=== PATIENT | female | born 1990 | race Caucasian/White ===

== ENCOUNTER 2016-11-25 15:05 | Emergency (ER) | payer BC ==
[2016-11-25 15:35] VITALS: BP 139/60
--- NOTE | 2016-11-25 15:47 | UC ---
Back Pain HPI - HPI Summary HPI Summary: Upper left back pain and muscle spasm causing pain in to her left arm - History of Current Complaint Chief Complaint: UCBackPain Stated Complaint: BACK PAIN Time Seen by Provider: 11/25/16 15:30 Hx Obtained From: Patient Hx Last Menstrual Period: November 12 ?: No Onset/Duration: Sudden Onset, Lasting Days - 2, Still Present Timing: Constant Severity Initially: Moderate Severity Currently: Moderate Pain Intensity: 7 Pain Scale Used: 0-10 Numeric Back Pain: Is Discrete @ - left upper back arm and shoulder Character: Aching, Spasmodic, Stiffness Aggravating: Movement, Lifting Alleviating: Rest, Position Associated Signs And Symptoms: Positive: Negative - Allergies/Home Medications Allergies/Adverse Reactions: Allergies Allergy/AdvReac Type Severity Reaction Status Date / Time Codeine Allergy Hives Verified 11/25/16 15:37 Home Medications: Home Medications Calcium 500 mg PO 11/25/16 [History] Cholecalciferol [Vitamin D] 1,000 unit PO 11/25/16 [History] Mirtazapine [Remeron] 45 mg PO 11/25/16 [History] Multiple Vitamins W/ Minerals [Multivitamin Adults] 11/25/16 [History] PMH/Surg Hx/FS Hx/Imm Hx Previously Healthy: No - osteopenia Psychological History Of: Reports: Anxiety - Surgical History Surgical History: None - Family History Family History: DDD - Social History Occupation: Employed Full-time - server security administrator Lives: With Family Alcohol Use: Weekly Substance Use Type: Marijuana Smoking Status (MU): Former Smoker Have You Smoked in the Last Year: No Review of Systems Constitutional: Negative Skin: Negative Eyes: Negative ENT: Negative Respiratory: Negative Cardiovascular: Negative Gastrointestinal: Negative Genitourinary: Negative Motor: Negative Neurovascular: Negative Musculoskeletal: Negative, Myalgia - left side of upper back and shoulder Neurological: Negative Psychological: Negative All Other Systems Reviewed And Are Negative: Yes Physical Exam Triage Information Reviewed: Yes Appearance: Well-Appearing, No Pain Distress, Well-Nourished Vital Signs: Initial Vital Signs Temp 98.6 F 11/25/16 15:27 Pulse 105 11/25/16 15:27 Resp 16 11/25/16 15:27 BP 139/60 11/25/16 15:27 Pulse Ox 100 11/25/16 15:27 Vital Signs Reviewed: Yes Eye Exam: Normal Eyes: Positive: Conjunctiva Clear ENT Exam: Normal ENT: Positive: Normal ENT inspection, Hearing grossly normal, TMs normal. Negative: Nasal congestion, Nasal drainage, Tonsillar swelling, Tonsillar exudate, Trismus, Muffled/hoarse voice Neck exam: Normal Neck: Positive: Supple, Nontender, No Lymphadenopathy Respiratory Exam: Normal Respiratory: Positive: Chest non-tender, Lungs clear, Normal breath sounds, No respiratory distress, No accessory muscle use Cardiovascular Exam: Normal Cardiovascular: Positive: RRR, No Murmur, Pulses Normal, Brisk Capillary Refill Musculoskeletal Exam: Normal Musculoskeletal: Positive: Strength Intact, ROM Intact, No Edema Neurological Exam: Normal Neurological: Positive: Alert, Muscle Tone Normal Psychological Exam: Normal Skin Exam: Normal Back Pain Course/Dx - Course Course Of Treatment: toradol, flexeril, ice pack, follow with pt and or pcp - Differential Dx/Diagnosis Differential Diagnosis/HQI/PQRI: Strain, Sprain Provider Diagnoses: Acute upper back pain, muscle spasm Discharge - Discharge Plan Condition: Stable Disposition: HOME Prescriptions: Cyclobenzaprine TAB* [Flexeril TAB*] 10 mg PO TID PRN #15 tab PRN Reason: muscle spasm Naproxen Sodium 500 mg PO BID PRN #20 tab PRN Reason: Pain Patient Education Materials: Muscle Spasm (ED), Back Pain (ED), Core Strengthening Exercises (GEN) Forms: *Work Release Referrals: Drew Bro MD [Primary Care Provider] - 5 Days
[2016-11-25] MEDS ORDERED: Ketorolac INJ* 60 MG/2 ML VIAL IM ONE (15:52)
== END 2016-11-25 16:12 | disposition home or self-care (01) ==
LOC: UCEAST 15:05
DX: M54.6 Pain in thoracic spine (principal); M62.830 Muscle spasm of back; Z88.5 Allergy status to narcotic agent; F12.90 Cannabis use, unspecified, uncomplicated; Z87.891 Personal history of nicotine dependence
CPT/HCPCS: 96372; 99212; G0463; J1885

== ENCOUNTER 2024-02-10 18:04 | Inpatient (IN) ==
[2024-02-10] MEDS ORDERED: Prochlorperazine 5 mg/ml 2 ml VIAL (10 mg) IV PRN (20:13)
[2024-02-10] MEDS ORDERED: Lidocaine 1% VIAL 10 MG/ML 30 ML VIAL INJ PRN (20:13)
[2024-02-10] MEDS: Dinoprostone 10 MG VAG.SUPP VAGINAL ONE (20:42)
[2024-02-10 22:02] LABS: ABS Basophils 0.1 10^3/uL (0.0-0.1); ABS Eosinophils 0.1 10^3/uL (0.0-0.5); ABS Lymphocytes 1.9 10^3/uL (1.0-4.8); ABS Monocytes 0.4 10^3/uL (0.0-0.9); ABS Neutrophils 6.9 10^3/uL (1.5-7.6); ABS Nucleated RBC 0.01 10^3/ul; Eosinophil % 0.8 %; Hematocrit 36.8 % (35-45); Lymphocyte % 20.3 %; Mean Corpuscular Hemoglobin 30.8 pg (27-33); Mean Corpuscular Hgb Conc 35.2 g/dL (31-36); Mean Corpuscular Volume 87.5 fL (80-97); Nucleated Red Blood Cells % 0.1 %/100WBC (0.0-0.8); Platelet Count 171 10^3/uL (150-450); Red Blood Count 4.21 10^6/uL (3.63-4.92); Red Cell Distribution Width 12.5 % (12-17); White Blood Count 9.4 10^3/uL (3.8-11.8)
[2024-02-10 22:34] LABS: Albumin 2.9 g/dL (3.2-5.2); Albumin/Globulin Ratio 1.2 (1-3); Calcium 8.6 mg/dL (8.6-10.3); Creatinine, Serum 0.86 mg/dL (0.51-0.95); Globulin 2.5 g/dL (2-4); Potassium 4.3 mmol/L (3.5-5.0); Total Bilirubin 0.2 mg/dL (0.2-1.0); Total Protein 5.4 g/dL (6.4-8.9); eGFR CKD-EPI 92.6 (>60)
[2024-02-10 23:42] LABS: Urine Benzodiazepine Screen None Detected (None Detect); Urine Cannabinoids Screen None Detected (None Detect); Urine Opiates Screen None Detected (None Detect)
[2024-02-11] MEDS: Lactated Ringers 1000 ml BAG 1,000 ML IV SCH ×2 (11:26→19:31)
[2024-02-11] MEDS: Oxytocin in LR 20,000 MILLI.UNIT/1,000 ML BAG IV SCH (11:30)
[2024-02-11 13:54] LABS: Hematocrit 37.7 % (35-45); Hemoglobin 13.1 g/dL (11.5-14.3); Mean Corpuscular Hemoglobin 30.4 pg (27-33); Mean Corpuscular Hgb Conc 34.7 g/dL (31-36); Mean Corpuscular Volume 87.5 fL (80-97); Mean Platelet Volume 10.9 fL (7.5-11.2); Platelet Count 155 10^3/uL (150-450); Red Blood Count 4.31 10^6/uL (3.63-4.92); Red Cell Distribution Width 12.3 % (12-17); White Blood Count 10.4 10^3/uL (3.8-11.8)
[2024-02-11] MEDS: OBEPIDURAL (200 ML) 200 ML EPIDURAL SCH (14:28)
[2024-02-11] MEDS ORDERED: Sodium Citrate/Citric Acid LIQ 15 ML UDC PO PRN (14:41)
[2024-02-11] MEDS ORDERED: Phenylephrine 40 mcg/mL 10mL (400mcg) SYRINGE IV PUSH PRN ×2 (14:41)
[2024-02-11 16:05] LABS: Urine Appearance Clear; Urine Bilirubin Negative (Negative); Urine Blood Trace (Negative); Urine Color Colorless; Urine Glucose Negative (Negative); Urine Ketones Negative (Negative); Urine Nitrite Negative (Negative); Urine Protein 2+ (>=100 mg/dL) (Negative); Urine Specific Gravity 1.007 (1.002-1.030); Urine Urobilinogen Negative (Negative)
[2024-02-11 16:08] LABS: Urine Bacteria Absent /HPF (Absent); Urine Red Blood Cell Trace(0-2/hpf) /HPF (0-Trace); Urine White Blood Cell Trace(0-5/hpf) /HPF (0-Trace)
[2024-02-11] MEDS: Buffered Lidocaine 1% SYRIN 1 ml INTRADERM ONE (19:30)
[2024-02-11] MEDS: Lactated Ringers 1000 ml BAG 1,000 ML IV ONE ×2 (19:31)
[2024-02-11] MEDS: Lidocaine 1.5% EPI 1:200,000 30 ML SDV ONE (19:31)
[2024-02-11] MEDS: OBEPIDURAL (200 ML) 200 ML EPIDURAL ONE (19:32)
[2024-02-11] MEDS ORDERED: Labetalol IV 5 MG/ML 20 ml VIAL ONE (23:26)
[2024-02-12] MEDS: Oxytocin in LR 20,000 MILLI.UNIT/1,000 ML BAG IV SCH (00:34)
[2024-02-12] MEDS: Carboprost Tromethamine 250 mcg 1 ml VIAL ONE ×2 (00:36→02:48)
[2024-02-12] MEDS ORDERED: ceFOXitin 2 GM IVPREMIX 2 GM/50 ML BAG ONE (00:37)
[2024-02-12] MEDS ORDERED: Ondansetron 4 mg VIAL 2 MG/ML 2 ml VIAL ONE (00:51)
[2024-02-12] MEDS ORDERED: Phenylephrine 40 mcg/mL 10mL (400mcg) SYRINGE ONE (01:00)
[2024-02-12] MEDS ORDERED: Dexamethasone IV 4 MG/ML VIAL 1 ml VIAL ONE (01:16)
[2024-02-12 01:36] LABS: Hematocrit 34.1 % (35-45); Hemoglobin 11.3 g/dL (11.5-14.3); Mean Corpuscular Hemoglobin 29.7 pg (27-33); Mean Corpuscular Hgb Conc 33.1 g/dL (31-36); Mean Corpuscular Volume 89.6 fL (80-97); Mean Platelet Volume 11.1 fL (7.5-11.2); Platelet Count 245 10^3/uL (150-450); Red Blood Count 3.81 10^6/uL (3.63-4.92); Red Cell Distribution Width 12.5 % (12-17)
[2024-02-12 01:44] LABS: Platelet Count 245 10^3/ul (150-450)
[2024-02-12] MEDS ORDERED: Glycerin ADULT 2.4 gm SUPP PR PRN (02:22)
[2024-02-12 02:45] LABS: Albumin 2.5 g/dL (3.2-5.2); Albumin/Globulin Ratio 1.1 (1-3); Creatinine, Serum 1.24 mg/dL (0.51-0.95); Globulin 2.2 g/dL (2-4); Potassium 4.3 mmol/L (3.5-5.0); Total Bilirubin 0.4 mg/dL (0.2-1.0); Total Protein 4.7 g/dL (6.4-8.9); eGFR CKD-EPI 59.7 (>60)
[2024-02-12 02:52] LABS: ABS Basophils 0.2 10^3/uL (0.0-0.1); ABS Lymphocytes 2.5 10^3/uL (1.0-4.8); ABS Monocytes 0.8 10^3/uL (0.0-0.9); ABS Neutrophils 20.4 10^3/uL (1.5-7.6); ABS Nucleated RBC 0.03 10^3/ul; Eosinophil % 0.1 %; Lymphocyte % 10.6 %; Nucleated Red Blood Cells % 0.1 %/100WBC (0.0-0.8)
[2024-02-12 02:56] LABS: Schistocytes ABSENT
[2024-02-12] MEDS ORDERED: Lactated Ringers 1000 ml BAG 1,000 ML IV SCH (03:00)
[2024-02-12 03:01] LABS: Activated Partial Thrombo Time 29.5 seconds (26.0-38.0); INR 0.87 (0.83-1.13)
[2024-02-12] MEDS: Dibucaine 1% OINT 28.35 GM TUBE PR PRN (03:22)
[2024-02-12] MEDS: Witch Hazel PAD JAR TOPICAL PRN (03:22)
[2024-02-12 12:12] LABS: Hematocrit 27.2 % (35-45); Hemoglobin 9.5 g/dL (11.5-14.3); Mean Corpuscular Hemoglobin 30.2 pg (27-33); Mean Corpuscular Hgb Conc 34.8 g/dL (31-36); Mean Corpuscular Volume 86.9 fL (80-97); Mean Platelet Volume 10.5 fL (7.5-11.2); Platelet Count 117 10^3/uL (150-450); Red Blood Count 3.13 10^6/uL (3.63-4.92); Red Cell Distribution Width 13.3 % (12-17); White Blood Count 17.7 10^3/uL (3.8-11.8)
[2024-02-12 12:52] LABS: Calcium 7.7 mg/dL (8.6-10.3); Creatinine, Serum 0.88 mg/dL (0.51-0.95); Potassium 4.4 mmol/L (3.5-5.0)
[2024-02-13 08:27] LABS: Hematocrit 23.1 % (35-45); Mean Corpuscular Hemoglobin 30.4 pg (27-33); Mean Corpuscular Hgb Conc 34.8 g/dL (31-36); Mean Corpuscular Volume 87.6 fL (80-97); Mean Platelet Volume 10.7 fL (7.5-11.2); Platelet Count 117 10^3/uL (150-450); Red Blood Count 2.63 10^6/uL (3.63-4.92); Red Cell Distribution Width 13.4 % (12-17); White Blood Count 13.1 10^3/uL (3.8-11.8)
[2024-02-13 08:28] LABS: ABS Basophils 0.1 10^3/uL (0.0-0.1); ABS Eosinophils 0.1 10^3/uL (0.0-0.5); ABS Lymphocytes 1.8 10^3/uL (1.0-4.8); ABS Monocytes 0.7 10^3/uL (0.0-0.9); ABS Neutrophils 10.5 10^3/uL (1.5-7.6); ABS Nucleated RBC 0.01 10^3/ul; Eosinophil % 0.6 %; Nucleated Red Blood Cells % 0.1 %/100WBC (0.0-0.8)
[2024-02-13 20:06] VITALS: BP 151/89
[2024-02-14 08:20] LABS: Hematocrit 22.7 % (35-45); Mean Corpuscular Hemoglobin 31.2 pg (27-33); Mean Corpuscular Hgb Conc 35.4 g/dL (31-36); Mean Corpuscular Volume 87.9 fL (80-97); Mean Platelet Volume 9.3 fL (7.5-11.2); Platelet Count 157 10^3/uL (150-450); Red Blood Count 2.58 10^6/uL (3.63-4.92); Red Cell Distribution Width 13.4 % (12-17); White Blood Count 10.6 10^3/uL (3.8-11.8)
[2024-02-14 09:02] LABS: ABS Basophils 0.1 10^3/uL (0.0-0.1); ABS Eosinophils 0.1 10^3/uL (0.0-0.5); ABS Monocytes 0.5 10^3/uL (0.0-0.9); ABS Nucleated RBC 0.02 10^3/ul; Eosinophil % 0.7 %; Lymphocyte % 18.4 %; Nucleated Red Blood Cells % 0.2 %/100WBC (0.0-0.8)
[2024-02-14 09:17] LABS: Albumin 2.4 g/dL (3.2-5.2); Albumin/Globulin Ratio 1.3 (1-3); Calcium 7.9 mg/dL (8.6-10.3); Creatinine, Serum 0.74 mg/dL (0.51-0.95); Globulin 1.9 g/dL (2-4); Potassium 4.3 mmol/L (3.5-5.0); Total Bilirubin 0.2 mg/dL (0.2-1.0); Total Protein 4.3 g/dL (6.4-8.9); eGFR CKD-EPI 110.2 (>60)
== END 2024-02-14 12:04 | disposition home or self-care (01) | DRG 807 ==
LOC: MCHOBOUT 18:04 → MCHOB 19:04
PROVIDERS: ADMIT Obstetrics & Gynecology; ATTEND Obstetrics & Gynecology